=== PATIENT | female | born 1975 | race American Indian/Alaskan Native ===

== ENCOUNTER 2020-03-09 07:58 | Emergency (ER) | payer OTHER, BC ==
[2020-03-09 08:07] VITALS: BP 133/68
[2020-03-09] MEDS ORDERED: KETOROLAC 10 MG TAB PO ONE (10:41)
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
== END 2020-03-09 13:05 | disposition home or self-care (01) ==
LOC: ED 07:58
DX: S63.92XA Sprain of unspecified part of left wrist and hand, initial encounter (principal); S16.1XXA Strain of muscle, fascia and tendon at neck level, initial encounter; I10 Essential (primary) hypertension; E11.9 Type 2 diabetes mellitus without complications; Z98.890 Other specified postprocedural states; Z79.899 Other long term (current) drug therapy; Z88.0 Allergy status to penicillin; Z88.6 Allergy status to analgesic agent; V49.49XA Driver injured in collision with other motor vehicles in traffic accident, initial encounter; Y92.410 Unspecified street and highway as the place of occurrence of the external cause; Y93.89 Activity, other specified; Y99.8 Other external cause status
CPT/HCPCS: 99283